=== PATIENT | male | born 1995 | race Two or more races ===

== ENCOUNTER 2023-03-07 01:00 | Emergency (ER) | payer SELFPAY ==
[~2023-03-07] VITALS: Ht 180.3 cm; Wt 102.1 kg
--- NOTE | 2023-03-07 02:40 | NUR ---
BIBFRIEND FROM HOME C/O URINARY RETENTION FROM F/C. LAST URINE OUTPUT 9AM. Pt is AAO X 4, breathing unlabored. Pt is s/p penile implant removal on Friday03/03/23. Noted with SARAH drain on, no output noted. Pt c/o pain and pressure, states feels like his bladder is full. Pt attached to monitor and pulse ox. Awaiting MD lemon
[2023-03-07] MEDS ORDERED: HYDROCODONE/APAP 5/325MG TABLET ONE ×2 (02:55→05:06)
[2023-03-07] MEDS: HYDROCODONE/APAP 5/325MG TABLET PO ONE ×2 (03:00→05:08)
--- NOTE | 2023-03-07 03:35 | NUR ---
urine collected, sent to lab
[2023-03-07 03:38] VITALS: TEMP 97
[2023-03-07 03:52] LABS: BILIRUBIN,URINE 1+ (NEGATIVE); COLOR,URINE DARK YELLOW (YELLOW); LEUKOCYTE ESTERASE ,URINE NEGATIVE (NEGATIVE); NITRITE, URINE NEGATIVE (NEGATIVE); PROTEIN,URINE 1+ mg/dl (NEGATIVE); UGLUCOSE NEGATIVE (NEGATIVE)
[2023-03-07 03:53] LABS: BACTERIA,URINE Rare /HPF (None Seen); SQUAMOUS EPITHELIAL CELL,UR Few /HPF (None Seen)
[2023-03-07] MEDS ORDERED: CIPROFLOXACIN HCL 500 MG TABLET ONE (04:39)
[2023-03-07] MEDS: CIPROFLOXACIN HCL 500 MG TABLET PO ONE (04:42)
--- NOTE | 2023-03-07 04:54 | NUR ---
patient wants fry catheter removed, Dr Kate made aware
--- NOTE | 2023-03-07 05:00 | NUR ---
Cruz catheter removed, pt was able to void 20ml. States he is feeling a lot better. Pain is 5/10.
[2023-03-07] MEDS ORDERED: CIPR-262 PO (05:02)
--- NOTE | 2023-03-07 05:10 | NUR ---
Patient states he is ready for discharge, would like to go home and follow up with urologist. Appt. today 03/07 @0900, in [place]. made aware
--- NOTE | 2023-03-07 05:14 | NUR ---
Discharge pt, per MDs orders. Discussed [place]aco of following up with specialist, importance of antibiotics, importance of emergency services if needed. Pt and aunt verbalized agreement. D/C paperwork explained and signed. Patient discharge safely.
[2023-03-07 05:21] VITALS: BP 125/84; O2SAT 100
== END 2023-03-07 05:22 | disposition home or self-care (01) ==
LOC: ER 01:05
DX: N39.0 Urinary tract infection, site not specified (principal); R33.9 Retention of urine, unspecified; Z60.2 Problems related to living alone; Z79.899 Other long term (current) drug therapy
CPT/HCPCS: 81001